=== PATIENT | female | born 1975 | race Caucasian/White ===

== ENCOUNTER 2020-03-20 14:24 | Emergency (ER) | payer OTHER ==
[2020-03-20 14:34] VITALS: BP 136/79
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
[2020-03-20 15:29] LABS: ABSOLUTE EOSINOPHILS # (AUTO) 0.1 10^3/uL (0.0-0.6); ABSOLUTE MONOCYTES (AUTO) 0.7 10^3/uL (0.1-1.4); MONOCYTES % (AUTO) 6.6 % (3-13); TOTAL CELLS COUNTED % (AUTO) 100 %
[2020-03-20 15:41] LABS: ABSOLUTE BASOPHILS # (AUTO) 0.1 10^3/uL (0.0-0.2); ABSOLUTE LYMPHOCYTES (AUTO) 2.5 10^3/uL (0.5-4.7); BASOPHILS % (AUTO) 0.6 % (0-2); EOSINOPHILS % (AUTO) 1.4 % (0-6); HEMATOCRIT 43.9 % (36.0-47.0); HEMOGLOBIN 15.4 g/dL (12.0-15.5); LYMPHOCYTES % (AUTO) 24.2 % (13-45); MEAN CORPUSCULAR HEMOGLOBIN 34.7 pg (27.0-33.4); MEAN CORPUSCULAR HGB CONC 35.2 g/dL (32.0-36.0); MEAN CORPUSCULAR VOLUME 99 fl (80-97); PLATELET COUNT 281 10^3/uL (150-450); RED BLOOD COUNT 4.45 10^6/uL (3.72-5.28); RED CELL DISTRIBUTION WIDTH 13.6 % (11.5-14.0); SEGMENTED NEUTROPHILS % (AUTO) 67.2 % (42-78); WHITE BLOOD COUNT 10.4 10^3/uL (4.0-10.5)
[2020-03-20 15:47] LABS: ALBUMIN 3.9 g/dL (3.5-5.0); ALKALINE PHOSPHATASE 136 U/L (38-126); ANION GAP 10 (5-19); ASPARTATE AMINO TRANSFERASE 35 U/L (14-36); BILIRUBIN,DIRECT 0.3 mg/dL (0.0-0.4); BILIRUBIN,TOTAL 0.5 mg/dL (0.2-1.3); BLOOD UREA NITROGEN 9 mg/dL (7-20); CARBON DIOXIDE 21 mmol/L (22-30); CHLORIDE 105 mmol/L (98-107); GLUCOSE 255 mg/dL (75-110); TOTAL PROTEIN 6.9 g/dL (6.3-8.2)
--- NOTE | 2020-03-20 15:55 | RADIOLOGY REPORT (SQ) ---
EXAM DESCRIPTION: T SPINE AP/LAT IMAGES COMPLETED DATE/TIME: 03/20/2020 3:45 pm REASON FOR STUDY: back pain COMPARISON: None. NUMBER OF VIEWS: Two views. TECHNIQUE: AP and lateral radiographic images acquired of the thoracic spine. LIMITATIONS: None. FINDINGS: MINERALIZATION: Normal. ALIGNMENT: Normal. No scoliosis. VERTEBRAE: No fracture or bone lesion. Maintained height, normal segmentation. DISCS: Multilevel disc space narrowing with osteophytes. HARDWARE: None in the spine. MEDIASTINUM AND SOFT TISSUES: Normal heart size and aortic contour. No soft tissue abnormality. VISUALIZED LUNG VIRK: Clear. OTHER: No other significant finding. IMPRESSION: SPONDYLOSIS WITHOUT BONE LESION OR FRACTURE. TECHNICAL DOCUMENTATION: JOB ID: [id number] 2010 [employer]- All Rights Reserved Reading location - IP/workstation name: [email or web address]
--- NOTE | 2020-03-20 15:56 | RADIOLOGY REPORT (SQ) ---
EXAM DESCRIPTION: L SPINE WHOLE IMAGES COMPLETED DATE/TIME: 03/20/2020 3:45 pm REASON FOR STUDY: back pain COMPARISON: None. NUMBER OF VIEWS: Five views including obliques. TECHNIQUE: AP, lateral, oblique, and sacral radiographic images acquired of the lumbar spine. LIMITATIONS: None. FINDINGS: MINERALIZATION: Normal. SEGMENTATION: Normal. No transitional anatomy. ALIGNMENT: Normal. VERTEBRAE: Maintained height. No fracture or worrisome bone lesion. DISCS: Multilevel disc space narrowing with osteophytes. POSTERIOR ELEMENTS: Pedicles and facets are intact. No pars defect or posterior arch defects. Facet arthropathy is present. HARDWARE: None in the spine. PARASPINAL SOFT TISSUES: Normal. PELVIS: Intact as visualized. No fractures or worrisome bone lesions. SI joints intact. OTHER: No other significant finding. IMPRESSION: SPONDYLOSIS WITHOUT BONE LESION OR FRACTURE. TECHNICAL DOCUMENTATION: JOB ID: [id number] 2010 [employer]- All Rights Reserved Reading location - IP/workstation name: [email or web address]
[2020-03-20] MEDS ORDERED: ONDANSETRON 4 MG TAB.RAPDIS PO ONE (16:07)
[2020-03-20] MEDS ORDERED: OXYCODONE-ACETAMINOPHEN 5-325 MG TABLET PO ONE (16:07)
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
[2020-03-20 16:31] LABS: APPEARANCE,URINE SLIGHTLY-CLOUDY; BILIRUBIN,URINE NEGATIVE (NEGATIVE); COLOR,URINE YELLOW; GLUCOSE, URINE 150 mg/dL (NEGATIVE); KETONES,URINE TRACE mg/dL (NEGATIVE); LEUKOCYTE ESTERASE,URINE NEGATIVE (NEGATIVE); NITRITE,URINE NEGATIVE (NEGATIVE); PROTEIN,URINE NEGATIVE (NEGATIVE); URINE SPECIFIC GRAVITY 1.023; UROBILINOGEN,URINE NEGATIVE mg/dL (<2.0)
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
[2020-03-20] MEDS ORDERED: HYDROCODONE/ACETAMINOPHEN 5-325 MG (6 TAB/ER DISP) PO PRN (17:20)
== END 2020-03-20 17:50 | disposition home or self-care (01) ==
LOC: ER 14:24
DX: S30.1XXA Contusion of abdominal wall, initial encounter (principal); M54.30 Sciatica, unspecified side; M79.10 Myalgia, unspecified site; R03.0 Elevated blood-pressure reading, without diagnosis of hypertension; V89.2XXA Person injured in unspecified motor-vehicle accident, traffic, initial encounter; F17.200 Nicotine dependence, unspecified, uncomplicated
CPT/HCPCS: 99285; 36415; 84703; 85025; 80053; 81001; 72110; 72070; 74177; S0119

== ENCOUNTER 2020-04-23 16:36 | Emergency (ER) | payer OTHER ==
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
[2020-04-23 17:32] LABS: ABSOLUTE BASOPHILS # (AUTO) 0.1 10^3/uL (0.0-0.2); ABSOLUTE EOSINOPHILS # (AUTO) 0.2 10^3/uL (0.0-0.6); ABSOLUTE LYMPHOCYTES (AUTO) 2.2 10^3/uL (0.5-4.7); ABSOLUTE MONOCYTES (AUTO) 0.5 10^3/uL (0.1-1.4); ABSOLUTE NEUT (AUTO) 7.4 10^3/uL (1.7-8.2); BASOPHILS % (AUTO) 0.7 % (0-2); EOSINOPHILS % (AUTO) 1.8 % (0-6); HEMATOCRIT 42.4 % (36.0-47.0); HEMOGLOBIN 15.2 g/dL (12.0-15.5); LYMPHOCYTES % (AUTO) 21.4 % (13-45); MEAN CORPUSCULAR HEMOGLOBIN 35.1 pg (27.0-33.4); MEAN CORPUSCULAR HGB CONC 35.9 g/dL (32.0-36.0); MEAN CORPUSCULAR VOLUME 98 fl (80-97); PLATELET COUNT 308 10^3/uL (150-450); RED BLOOD COUNT 4.33 10^6/uL (3.72-5.28); RED CELL DISTRIBUTION WIDTH 12.5 % (11.5-14.0); SEGMENTED NEUTROPHILS % (AUTO) 71.1 % (42-78); TOTAL CELLS COUNTED % (AUTO) 100 %; WHITE BLOOD COUNT 10.4 10^3/uL (4.0-10.5)
[2020-04-23 17:38] LABS: APPEARANCE,URINE CLEAR; BILIRUBIN,URINE NEGATIVE (NEGATIVE); COLOR,URINE YELLOW; GLUCOSE, URINE 50 mg/dL (NEGATIVE); KETONES,URINE TRACE mg/dL (NEGATIVE); LEUKOCYTE ESTERASE,URINE TRACE (NEGATIVE); NITRITE,URINE NEGATIVE (NEGATIVE); PROTEIN,URINE NEGATIVE (NEGATIVE); URINE SPECIFIC GRAVITY 1.029; UROBILINOGEN,URINE NEGATIVE mg/dL (<2.0)
[2020-04-23 17:52] LABS: ALBUMIN 3.6 g/dL (3.5-5.0); ALKALINE PHOSPHATASE 132 U/L (38-126); ANION GAP 10 (5-19); ASPARTATE AMINO TRANSFERASE 33 U/L (14-36); BILIRUBIN,DIRECT 0.2 mg/dL (0.0-0.4); BILIRUBIN,TOTAL 0.3 mg/dL (0.2-1.3); BLOOD UREA NITROGEN 14 mg/dL (7-20); CALCIUM 9.4 mg/dL (8.4-10.2); CARBON DIOXIDE 23 mmol/L (22-30); CHLORIDE 104 mmol/L (98-107); GLUCOSE 244 mg/dL (75-110); POTASSIUM 4.3 mmol/L (3.6-5.0); TOTAL PROTEIN 6.8 g/dL (6.3-8.2)
--- NOTE | 2020-04-23 19:24 | RADIOLOGY REPORT (SQ) ---
EXAM DESCRIPTION: CT ABD/PELVIS WITH IV ONLY IMAGES COMPLETED DATE/TIME: 04/23/2020 6:57 pm REASON FOR STUDY: right abd pain COMPARISON: CT abdomen and pelvis 03/20/2020. TECHNIQUE: CT scan of the abdomen and pelvis performed using helical scanning technique with dynamic intravenous contrast injection. No oral contrast. Images reviewed with lung, soft tissue, and bone windows. Reconstructed coronal and sagittal MPR images reviewed. Delayed images for evaluation of the urinary system also acquired. All images stored on PACS. All CT scanners at this facility use dose modulation, iterative reconstruction, and/or weight based d osing when appropriate to reduce radiation dose to as low as reasonably achievable (ALARA). [facility]: Dose Right [facility]: CareDose [facility]: Dose Right [facility]: Teradose 4D [facility]: [employer] CONTRAST TYPE AND DOSE: contrast/concentration: Isovue 350.00 mmol/ml; Total Contrast Delivered: 100 .0 ml; Total Saline Delivered: 72.0 ml RENAL FUNCTION: Creatinine 0.51. RADIATION DOSE: CT Rad equipment meets quality standard of care and radiation dose reduction techniq ues were employed. CTDIvol: 18.9 - 21.0 mGy. DLP: 2174 mGy-cm.. LIMITATIONS: None. FINDINGS: LOWER CHEST: Atelectatic changes are noted at the bilateral lung bases. Calcified lymph n odes at the right hilum. Calcified granuloma at the right middle lobe. No pleural effusion. LIVER: The liver is enlarged measuring 21.9 cm in craniocaudal diameter. There is diffuse decreased attenuation most consistent with fatty infiltration. No dilated ducts. SPLEEN: Small calcifications at the spleen are probably representing granulomas. Lesions. PANCREAS: No significant calcifications. No adjacent inflammation or peripancreatic fluid collections . Pancreatic duct not dilated. GALLBLADDER: No identified stones by CT criteria. No inflammatory changes to suggest cholecystitis. ADRENAL GLANDS: No significant masses or asymmetry. RIGHT KIDNEY AND URETER: No solid masses. No significant calcifications. No hydronephrosis or hyd roureter. LEFT KIDNEY AND URETER: No solid masses. No significant calcifications. No hydronephrosis or hydr oureter. AORTA AND VESSELS: No abdominal aortic aneurysm or acute dissection. RETROPERITONEUM: No retroperitoneal hemorrhage or masses. BOWEL AND PERITONEAL CAVITY: No dilated bowel loops to suggest obstruction. No focal inflammatory ch anges. No free air or free fluid. APPENDIX: Normal. PELVIS: The urinary bladder is partially distended. The uterus is present. There is a 1.8 cm hypoec hoic lesion with peripheral enhancement at the left ovary, probably presenting a functional cyst. No free fluid. ABDOMINAL WALL: No hernias. BONES: Multilevel degenerative changes at the spine. IMPRESSION: 1. No acute findings in the abdomen or pelvis. 2. Hepatomegaly. Fatty infiltration of the liver. 3. Remote granulomatous disease. 4. Bibasilar atelectasis. TECHNICAL DOCUMENTATION: JOB ID: [id number] [facility] Quality ID # [id number]: Final reports with documentation of one or more dose reduction techniques (e.g., Au tomated exposure control, adjustment of the mA and/or kV according to patient size, use of iterative reconstruction technique) 2010 [employer]- All Rights Reserved Reading location - IP/workstation name: [email or web address]
[2020-04-23] MEDS ORDERED: MORPHINE SULFATE 10 MG/ML INJ IV ONE (21:11)
[2020-04-23] MEDS ORDERED: ONDANSETRON HCL INJ/PF 4 MG/2 ML SDV IV ONE (21:11)
--- NOTE | 2020-04-23 21:27 | ER Document Report ---
ED General - General Chief Complaint: Flank Pain Stated Complaint: RIGHT ABDOMINAL PAIN Time Seen by Provider: 04/23/20 16:42 Primary Care Provider: MAGDA LEI MD [Primary Care Provider] - Follow up in 3-5 days TRAVEL OUTSIDE OF THE [place] IN LAST 30 DAYS: No - HPI Notes: 44-year-old female to the emergency department with complaints of right upper abdominal pain that began on and has been persistent. She states it seems to hurt worse when she is moving and when she is coughing. She states she cannot get comfortable. She states that despite taking Aleve, Motrin, Tylenol she is still uncomfortable. Denies any nausea or vomiting. She denies any falls. The only thing that she can say may be related to her pain is that she moved a 80 pound plant prior to her pain starting. She states that she is not had any low back pain. She denies any bladder or bowel incontinence, urinary retention, radiculopathy, saddle paresthesia, fevers, IV drug abuse. She states she works as a [employer] and has not been able to perform her job because of the pain. No past abdominal surgeries. She states she has had history of vaginal scraping and tonsillectomy. She states she has had a little bit of constipation. - Related Data Allergies/Adverse Reactions: No Known Allergies Allergy (Verified 05/25/12 08:06) Past Medical History - General Information source: Patient - Social History Smoking Status: Never Smoker Frequency of alcohol use: None Drug Abuse: None Family History: Reviewed & Not Pertinent Patient has homicidal ideation: No Pulmonary Medical History: Reports: Hx Asthma Endocrine Medical History: Reports: Hx Diabetes Mellitus Type 2 - "borderline" - Immunizations Immunizations up to date: Yes Hx Diphtheria, Pertussis, Tetanus Vaccination: Yes - 2009 Review of Systems - Review of Systems Constitutional: denies: Chills, Fever EENT: No symptoms reported Cardiovascular: denies: Chest pain, Palpitations, Heart racing, Orthopnea, Dyspnea, Syncope, Dizziness, Lightheaded Respiratory: denies: Cough, Short of breath Gastrointestinal: Abdominal pain. denies: Diarrhea, Nausea, Vomiting Genitourinary: No symptoms reported. denies: Flank pain, Incontinence, Retention Musculoskeletal: denies: Back pain Neurological/Psychological: No symptoms reported -: Yes All other systems reviewed and negative Physical Exam - Vital signs Vitals: Temp Pulse Resp BP Pulse Ox 97.7 F 79 16 143/72 H 98 04/23/20 16:40 04/23/20 16:40 04/23/20 16:40 04/23/20 16:40 04/23/20 16:40 Interpretation: Normal - General General appearance: Alert In distress: Moderate - Moderate pain discomfort. She sitting in a chair and states that she cannot get comfortable - HEENT Head: Normocephalic, Atraumatic Eyes: Normal Pupils: PERRL Neck: Normal, Supple - Respiratory Respiratory status: No respiratory distress Chest status: Nontender Breath sounds: Normal. No: Rales, Rhonchi, Wheezing Chest palpation: Normal - Cardiovascular Rhythm: Regular Heart sounds: Normal auscultation Murmur: No - Abdominal Inspection: Obese Distension: No distension Bowel sounds: Normal Tenderness: Tender - There is tenderness to palpation to the right flank and right upper quadrant.. 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 Noted that she has a blood sugar of 244. She states that she has been in diagnosed with prediabetes and used to be on Metformin but has not seen her primary care in a little bit of time. She denies diabetic ketoacidosis. Her CT findings are premature benign. She does have an incidental finding for granuloma. She does not seem to have an acute cholecystitis on CT and she does not have diffusely elevated liver enzymes, elevated lipase, elevated bilirubin. She does not have a leukocytosis. She does not have any other acute findings in the abdomen on CT. She is feeling better after pain control here in the emergency department. She states her pain has decreased from 5 out of 5 to a 3 out of 5. She states it is much more tolerable. Suspect that she has a musculoskeletal strain of the abdominal wall, given her history of moving a large plant prior to her pain starting. I have encouraged her to return immediately if any worsening symptoms such as fevers, nausea vomiting, worsening pain, chest pain, shortness of breath, bladder bowel incontinence, urinary retention, saddle paresthesia, radiculopathy. She agrees with the plan. I have encouraged her to follow-up with her primary care physician without fail on Saturday or Saturday. - Vital Signs Vital signs: Temp Pulse Resp BP Pulse Ox 98.3 F 68 20 146/77 H 98 04/23/20 22:30 04/23/20 22:30 04/23/20 22:30 04/23/20 22:30 04/23/20 22:30 - Laboratory Result Diagrams: 04/23/20 17:14 04/23/20 17:14 Laboratory results interpreted by me: 04/23/20 04/23/20 04/23/20 17:14 17:14 17:14 MCV 98 H MCH 35.1 H Creatinine 0.51 L Glucose 244 H Alkaline Phosphatase 132 H Urine Glucose (UA) 50 H Urine Ketones TRACE H Ur Leukocyte Esterase TRACE H Urine Ascorbic Acid 40 H - Diagnostic Test Radiology reviewed: Image reviewed, Reports reviewed Discharge - Discharge Clinical Impression: Right upper quadrant abdominal pain, Hyperglycemia Abdominal wall strain Qualifiers: Encounter type: initial encounter Qualified Code(s): S39.011A - Strain of muscle, fascia and tendon of abdomen, initial encounter Condition: Stable Disposition: HOME, SELF-CARE Instructions: Abdominal Pain ([facility]), Hyperglycemia ([facility]), Muscle Strain ([facility]) Additional Instructions: Please follow-up with Dr. Lei without fail. Your blood sugar was 244 today. We will restart your Metformin today your abdominal CT was very reassuring. There is no evidence for any gallbladder disease, appendicitis, infection in your abdomen. There is no incarcerated hernia. There was an incidental finding of a granuloma in your chest CT. This needs to be followed by Dr. Lei. No lifting anything greater than 10 pounds for the next week. Please return immediately if your pain is not well controlled or worsening. Please return also if you have any urinary retention, saddle paresthesia, radiculopathy, bladder or bowel incontinence, or any other concerning symptoms. Prescriptions: Cyclobenzaprine HCl [Flexeril 10 mg Tablet] 10 mg PO TID #21 tablet Metformin HCl 500 mg PO DAILY #30 tablet Polyethylene Glycol 3350 [Miralax Powder 17 gm/Packet] 1 packet PO DAILY #1 pkg Oxycodone HCl/Acetaminophen [Percocet 5-325 mg Tablet] 1 - 2 tab PO Q6H PRN #12 tablet PRN Reason: Forms: Special Work Note Referrals: MAGDA LEI MD [Primary Care Provider] - Follow up in 3-5 days
[2020-04-23] MEDS ORDERED: CYCLOBENZAPRINE HCL 10 MG TABLET PO ONE (22:04)
[2020-04-23 22:31] VITALS: BP 146/77
--- NOTE | 2020-04-24 10:37 | ER Document Report ---
Doctor's Note Notes: 04/24/20 10:36 [facility] pharmacy called stating that the narcotic dosage is too high per their protocols for dispensing. I have changed the prescription to Percocet 5/325 1 tablet every 6 hours as needed pain, total dispensed #10. This was electronically sent. The previous prescription was canceled. This was my only interaction with the patient's chart.
== END 2020-04-23 22:49 | disposition home or self-care (01) ==
LOC: ER 16:36
DX: S39.011A Strain of muscle, fascia and tendon of abdomen, initial encounter (principal); R10.9 Unspecified abdominal pain; R10.11 Right upper quadrant pain; R05 Cough; M54.5 Low back pain; E11.65 Type 2 diabetes mellitus with hyperglycemia; X58.XXXA Exposure to other specified factors, initial encounter; J45.909 Unspecified asthma, uncomplicated; E66.9 Obesity, unspecified
CPT/HCPCS: 99285; 96374; 96375; 36415; 83690; 85025; 80053; 81001; 74177; J2270; J2405